=== PATIENT | male | born 1975 | race Caucasian/White ===

== ENCOUNTER 2016-11-29 09:09 | Emergency (ER) | payer OTHER ==
[~2016-11-29] VITALS: Ht 177.8 cm; Wt 167.4 kg
[2016-11-29 10:58] VITALS: BP 150/102
== END 2016-11-29 10:58 | disposition home or self-care (01) ==
LOC: ED 09:09
DX: S39.012A Strain of muscle, fascia and tendon of lower back, initial encounter (principal); S80.01XA Contusion of right knee, initial encounter; V53.5XXA Driver of pick-up truck or van injured in collision with car, pick-up truck or van in traffic accident, initial encounter; Y93.I9 Activity, other involving external motion; Y99.8 Other external cause status; Y92.411 Interstate highway as the place of occurrence of the external cause
CPT/HCPCS: J1885

== ENCOUNTER 2017-04-21 10:00 | Emergency (ER) | payer OTHER ==
[~2017-04-21] VITALS: Ht 177.8 cm; Wt 158.8 kg
[2017-04-21 10:22] VITALS: BP 138/88; Ht 177.8 cm; Wt 158.8 kg
== END 2017-04-21 12:24 | disposition home or self-care (01) ==
LOC: ED 10:00
DX: G89.29 Other chronic pain (principal); M25.562 Pain in left knee
CPT/HCPCS: J1885